=== PATIENT | male | born 1955 ===

== ENCOUNTER 2020-01-28 12:30 | Inpatient (IN) | payer MEDICARE, BC ==
[~2020-01-28] VITALS: Ht 175.3 cm; Wt 83.3 kg
[~2020-01-28 12:30] MED LIST: EC NAPROSYN500 MG PO; GLUCOPHAGE500 MG PO; GLUCOTROL10 MG PO; TRICOR200 MG PO
[2020-02-22] VITALS (11 sets, daily range): BP systolic 157–182; BP diastolic 66–89; PULSE 65–87; TEMP 97.5–98.4
--- NOTE | 2020-02-22 11:13 | NUR ---
TO RM 3 PER CART PER WC. ABLE TO TRANSFER TO BED WITH LITTLE ASSISTANCE. ALERT ORIENTED X3, VERBALIZED UNDERSTANDING AND SIGNED CONSENT.
[2020-02-22] MEDS ORDERED: LANTUS100 U/ML SQ (11:20)
[2020-02-22] MEDS ORDERED: GLUCOTROL10 MG PO (11:21)
[2020-02-22] MEDS ORDERED: NEURONTIN400 MG/CAP PO (11:22)
[2020-02-22] MEDS ORDERED: PROCARDIA XL90 MG PO (11:22)
[2020-02-22 11:23] LABS: BASO % 0.3 % (0.0-2.0); EOS # 0.1 (0.0-0.7); EOS % 1.9 % (0-4.0); GRAN % 67.5 % (42.2-75.2); HEMOGLOBIN 10.9 g/dl (13.5-18.0); LYMPH # 1.4 (1.2-3.4); LYMPH % 23.4 % (20.0-51.0); MEAN CELL VOLUME 94 fl (80.0-100.0); MEAN CORPUSCULAR HEMOGLOBIN 31 pg (27.0-31.0); MEAN CORPUSCULAR HGB CONC 33 g/dl (33.0-37.0); MEAN PLATELET VOLUME 10.6 fl (7.4-10.4); MONO # 0.4 (0.1-0.6); MONO % 6.7 % (1.7-9.3); PLATELET COUNT 267 K/mm3 (130-400); RED BLOOD COUNT 3.56 M/mm3 (4.20-5.60); REDCELL DISTRIBUTION WIDTH-CV 13.4 % (11.5-14.5)
[2020-02-22] MEDS ORDERED: TOPROL XL 25MG25 MG PO (11:23)
[2020-02-22 11:24] LABS: HEMATOCRIT 33.3 % (42.0-52.0)
[2020-02-22] MEDS ORDERED: PRINIVIL20 MG PO (11:24)
[2020-02-22] MEDS ORDERED: ISORDIL TITRADO30 MG PO (11:24)
[2020-02-22] MEDS ORDERED: K-DUR20 MEQ PO (11:26)
[2020-02-22] MEDS ORDERED: LIPOFEN50 M1 PO (11:26)
[2020-02-22] MEDS ORDERED: NORCO 325 MG-101 TAB PO (11:27)
[2020-02-22] MEDS ORDERED: ONE-A-DAY ESSE1 EACH PO (11:27)
[2020-02-22 11:35] LABS: ALBUMIN 3.5 gm/dL (3.5-5.0); BILIRUBIN,TOTAL 0.3 mg/dL (0.0-1.0); CALCIUM 8.2 mg/dL (8.4-10.2); POTASSIUM 4.4 mmol/L (3.4-5.0); TOTAL PROTEIN 6.3 gm/dL (6.4-8.2)
[2020-02-22] MEDS ORDERED: IMDUR 30MG30 MG/TAB PO (16:37)
--- NOTE | 2020-02-22 17:50 | NUR ---
Patient to room via bed from PACU. Patient wakes up to name and will respond but goes back to sleep. Abd lap sites x5 with all edges well approximated, glue in place, no redness/swelling/discharge noted. Larger incision to lower abd with edges well approximated, glue in place, no redness/swelling/discharge noted. Foss to dependent drainage draining clear yellow/green urine. Patient oriented to room.
--- NOTE | 2020-02-22 20:07 | NUR ---
Resting in bed. Assessment complete. Lungs clear. Heart sounds normal. Bowels hypoactive. Foss to dependent drainage. ABD soft. x5 lap sites with x1 transverse site. BP elevated given scheduled meds and will monitor. Reported 10/10 pain. Given tramadol. Fluids clarified. Changed to NS from LR. Started at this time. Denies other needs. Will monitor.
--- NOTE | 2020-02-22 20:52 | NUR ---
Ximena Sands called for an update. Per patient okay to speak with. Update given. All questions answered.
--- NOTE | 2020-02-22 21:47 | NUR ---
Patient BP in 170s after metoprolol. Per Dr. Farooq pain manage for now and call if above 190.
--- NOTE | 2020-02-22 21:54 | NUR ---
Rating pain 12/10, given PRN oxycodone at this time. Call light in reach.
--- NOTE | 2020-02-22 22:05 | NUR ---
Patient had large dark red/bloody Bm at this time. Will monitor.
--- NOTE | 2020-02-22 23:52 | NUR ---
Resting in bed asleep. No obvious discomfort at this time. BP 150s systolic. Will monitor. Call light in reach.
[2020-02-23] VITALS (9 sets, daily range): BP systolic 132–202; BP diastolic 63–92; PULSE 72–83; TEMP 97.5–98.8
--- NOTE | 2020-02-23 01:00 | NUR ---
Placed on bed fuchs. Gas only, no BM. Denies other needs. Call light in reach.
--- NOTE | 2020-02-23 02:05 | NUR ---
Resting in bed asleep. Call light in reach.
--- NOTE | 2020-02-23 04:00 | NUR ---
Reported toe pain from covers. Removed and pain resolved. Denies other needs. Call light in reach.
--- NOTE | 2020-02-23 04:12 | NUR ---
Rating pain 4/10 in ABD/Back. Given scheduled tylenol. Call light in reach.
--- NOTE | 2020-02-23 05:32 | NUR ---
Rating pain 6/10. Provided with PRN oxycodone. Denies other needs. Call light in reach.
--- NOTE | 2020-02-23 07:05 | NUR ---
Report given to TONIO Francisco
[2020-02-23 07:10] LABS: BASO % 0.2 % (0.0-2.0); EOS % 0.1 % (0-4.0); GRAN # 7.6 (1.4-6.5); GRAN % 79.4 % (42.2-75.2); HEMATOCRIT 30.9 % (42.0-52.0); HEMOGLOBIN 10.1 g/dl (13.5-18.0); LYMPH # 1.2 (1.2-3.4); MEAN CELL VOLUME 94 fl (80.0-100.0); MEAN CORPUSCULAR HEMOGLOBIN 31 pg (27.0-31.0); MEAN CORPUSCULAR HGB CONC 33 g/dl (33.0-37.0); MEAN PLATELET VOLUME 10.6 fl (7.4-10.4); MONO # 0.7 (0.1-0.6); PLATELET COUNT 255 K/mm3 (130-400); RED BLOOD COUNT 3.29 M/mm3 (4.20-5.60); REDCELL DISTRIBUTION WIDTH-CV 13.9 % (11.5-14.5)
--- NOTE | 2020-02-23 07:18 | NUR ---
Shift assessment completed. Patient has no abdominal complaints at this time. Patient is using SCD's, has an indwelling catheter and an INT IV line. No redness or swelling at the IV site. LAP Incision REX x5, no swelling at the incision site and glue is intact.
[2020-02-23 07:23] LABS: CALCIUM 7.4 mg/dL (8.4-10.2); CREATININE, serum 2.37 (0.66-1.25); MAGNESIUM 1.7 mg/dL (1.6-2.3); PHOSPHOROUS 4.2 mg/dL (2.5-4.5); POTASSIUM 4.8 mmol/L (3.4-5.0)
--- NOTE | 2020-02-23 08:38 | NUR ---
Lying in bed with eyes open. Alert and oriented x3. Rates pain in abd 2-3/10, unable to describe. Lap sites x5 with all edges well approximated, glue intact, no redness/swelling/discharge. Low abd incision with edges well approximated, glue intact, no redness/swelling/discharge. Minimal lower ext edema noted that resolves quickly. Will dc IV fluids at this time as the patient is tolerating PO without difficulty. Foss to dependent drainage draining clear yellow urine. Denies additional needs.
--- NOTE | 2020-02-23 09:30 | NUR ---
Patient ambulated to the bathroom and had a bowel movement. Small loose stool was dark red. Some minimal abdominal pain when sitting up and getting to the edge of the bed. No issues with ambulation.
--- NOTE | 2020-02-23 11:05 | NUR ---
Administer Roxicodone as prescribed for back pain 02/25. Patient says that he has chronic back pain and being in the bed does not help. Explain that we can sit him up in the recliner chair if being in the recliner is better. Patient says that will help. Will allow time for pain medication to work then assist patient up to recliner. Denies additional needs at this time.
--- NOTE | 2020-02-23 11:45 | NUR ---
BP elevated, apresoline administered as prescribed.
--- NOTE | 2020-02-23 11:55 | NUR ---
Patient continues to have pain in low back. Says that this is an ongoing issue that he has at home as well and he usually sits up in recliner and that helps decrease the pain. Assist patient up to recliner at this time. Patient says that it was instant relief from pain when he got in recliner. Pain rating went from 9/10 down to 6/10. Assisted patient in setting up lunch tray. Patient denies additional needs at this time.
--- NOTE | 2020-02-23 13:04 | NUR ---
Patient in recliner with eyes closed. Opens eyes when enter room. Says that his pain is better. BP checked manually and is 152/78. Assisted patient in reclining top of chair back to comfortable position. Patient denies additional needs at this time.
--- NOTE | 2020-02-23 14:44 | NUR ---
Patient sitting up in chair with eyes open. Starting to have increase of pain in back. Patient says that even at home the pain medication does not last the time that it should. Patient would like pain medication. Administer tramadol as prescribed. Patient would like to stay in chair at this time. Denies additional needs.
--- NOTE | 2020-02-23 16:01 | NUR ---
Enterprise Project Manager met with patient to discuss discharge planning. Patient lives alone in [place], [place] and sees Dr. Lay for primary care. Patient obtains medications from [facility] in [place] or [facility] in [place]. Patient reports he has four walkers, three wheelchairs, a walk in shower, and a raised toilet. Patient advised he is normally independent with ADLS but does walk slow. Patient does not have Advance Directives. Patient is not , does not have children, his parents are , and his one sister is . Patient reports he has a niece and newphew but does not want to designate them as DPOA-HC. Patient states if he were to designate anyone it would be his neighbor, Gene Coe (ph#[phone]), who will inherit all his belongins when patient passes. Patient would like to complete the DPOA-HC form while he is here. MAURICIO assisted him in completing the form then MAURICIO and MAURICIO Hassan provided witness signature. MAURICIO provided original and copies to patient then placed a copy in patient's chart. MAURICIO spoke with Dr. Rizzo and requested PT/OT for patient. MAURICIO will continue to follow.
--- NOTE | 2020-02-23 16:23 | NUR ---
Sitting up in chair talking on cell phone. Continues to have low back pain, does not feel that the Tramadol really helped. Patient is aware that he can have more pain medication at 1700. Denies additional needs at this time.
--- NOTE | 2020-02-23 17:03 | NUR ---
Patient remains sitting up in chair. Rates pain in abd 6/10 and pain in back 8/10. Requests Roxicodone at this time, administered as prescribed.
[2020-02-23 17:36] LABS: CALCIUM 7.7 mg/dL (8.4-10.2); CREATININE, serum 2.23 (0.66-1.25); POTASSIUM 4.4 mmol/L (3.4-5.0)
--- NOTE | 2020-02-23 17:59 | NUR ---
Sitting up in recliner, continues to rate pain in back and abd 6/10. Says that he hopes tomorrow to not have to get IV fluids any longer and to also get rid of the catheter. Patient denies additional concerns or needs at this time.
--- NOTE | 2020-02-23 18:53 | NUR ---
IV fluids dc'd per orders and site saline locked. Discussed with the patient the process to remove catheter, patient is ready to get this done. Catheter care provided at this time. 10mL removed from catheter balloon. Catheter pulled at this time, tubing all intact. Patient explains that he already has some relief getting the catheter out. Tolerates procedure well. Remains sitting up in chair at this time. Denies additional needs or concerns at this time.
--- NOTE | 2020-02-23 19:10 | NUR ---
Received report from Maryam. Seen patient awake, sitting in the recliner. He is alert and oriented. With INT on right forearm. With 5 lap sites in abdomen and incision on his low abdomen. Clean, dry and intact. No dressing. Call light within reach.
--- NOTE | 2020-02-23 20:45 | NUR ---
Patient complains of abdominal and back pain. Pain score of 7/10. Offered to him Tramadol but he said it doesn't work well for him and he prefers Oxycodone.
[2020-02-24 04:21] VITALS: BP 160/67; PULSE 70; TEMP 98.3
--- NOTE | 2020-02-24 06:34 | NUR ---
Patient had uneventful night. He occasionally complained of back pain and abdominal pain. Oxycodone and scheduled Tylenol was given. Call light within reach.
[2020-02-24 07:38] VITALS: BP 147/70; PULSE 75; TEMP 98
[2020-02-24 07:39] LABS: BASO % 0.1 % (0.0-2.0); EOS # 0.1 (0.0-0.7); EOS % 1.6 % (0-4.0); GRAN # 5.7 (1.4-6.5); GRAN % 75.7 % (42.2-75.2); LYMPH # 1.3 (1.2-3.4); LYMPH % 16.9 % (20.0-51.0); MEAN CELL VOLUME 94 fl (80.0-100.0); MEAN CORPUSCULAR HGB CONC 32 g/dl (33.0-37.0); MEAN PLATELET VOLUME 10.6 fl (7.4-10.4); MONO # 0.4 (0.1-0.6); MONO % 5.4 % (1.7-9.3); PLATELET COUNT 245 K/mm3 (130-400); REDCELL DISTRIBUTION WIDTH-CV 14.1 % (11.5-14.5)
[2020-02-24 07:42] LABS: ALBUMIN 2.9 gm/dL (3.5-5.0); BILIRUBIN,TOTAL 0.3 mg/dL (0.0-1.0); CALCIUM 7.7 mg/dL (8.4-10.2); CREATININE, serum 2.09 (0.66-1.25); POTASSIUM 4.1 mmol/L (3.4-5.0); TOTAL PROTEIN 5.5 gm/dL (6.4-8.2)
[2020-02-24 07:53] LABS: HEMATOCRIT 30.2 % (42.0-52.0); HEMOGLOBIN 9.7 g/dl (13.5-18.0); MEAN CORPUSCULAR HEMOGLOBIN 30 pg (27.0-31.0)
--- NOTE | 2020-02-24 08:25 | NUR ---
Sitting up in chair. Says that his pain is better today and when he gets the Tylenol he only wants to take one. Abd lap sites x5 with edges well approximated, no redness/swelling/discharge. Low abd incision with edges well approximated, no redness/swelling/discharge. Patient remains sitting up in recliner. Denies any additional needs or concerns at this time.
--- NOTE | 2020-02-24 09:02 | NUR ---
First visit from the game protector. No needs right now.
--- NOTE | 2020-02-24 11:33 | NUR ---
Sitting up in chair watching TV. Patient continues to have minimal pain at this time. BS elevated, patient says that he had orange juice at breakfast and he knew he shouldn't have drank it. Insulin administered as prescribed. Denies additional needs at this time.
[2020-02-24] MEDS ORDERED: ROXICODONE 55 MG/TAB PO (11:49)
[2020-02-24] MEDS ORDERED: ULTRAM 50MG TAB50 MG PO (11:50)
[2020-02-24] MEDS ORDERED: TYLENOL 500MG500 MG PO (11:50)
[2020-02-24 13:01] VITALS: BP 151/68; PULSE 77; TEMP 97.8
--- NOTE | 2020-02-24 14:26 | NUR ---
Having back pain, requests pain medication, does not want tramadol as it does not help. Will administer Roxicodone as prescribed. Patient was ambulating in halls with PT. Returns to room and sits up in chair.
[2020-02-24 16:00] VITALS: BP 133/65; PULSE 81; TEMP 97.9
--- NOTE | 2020-02-24 16:37 | NUR ---
Patient sitting up in chair, holding head in hand looking at ground. Asked patient what was going on and he says that he got a frustrating phone call that some of his crop was ruined.Support provided to the patient. Pain has decreased some in back, always has chronic back pain. Dr. Espinal in room to talk with patient regarding his diabetes. Voices no further needs at this time.
--- NOTE | 2020-02-24 19:20 | NUR ---
Received change of shift report from day shift nurse.
--- NOTE | 2020-02-24 20:00 | NUR ---
PATIENT DENIES CHEST PAIN/SHORTNESS OF BREATH AT THIS TIME. TELE IN PLACE, WITH SALINE LOCK SITE CLEAR. SEE eMAR FOR MEDS GIVEN. UP IN ROOM WITH ASST NEEDED.
[2020-02-24 20:39] VITALS: BP 153/68; PULSE 77; TEMP 98.5
[2020-02-25 00:35] VITALS: BP 133/44; PULSE 74; TEMP 98.3
[2020-02-25 04:18] VITALS: BP 143/70; PULSE 69; TEMP 97.7
--- NOTE | 2020-02-25 04:22 | NUR ---
PATIENT UP IN CHAIR, SEE eMAR FOR PAIN MEDS GIVEN. NO OTHER NEEDS REPORTED.
--- NOTE | 2020-02-25 07:14 | NUR ---
CHANGE OF SHIFT REPORT GIVEN TO DAY SHIFT NURSEYT. PATIENT UP TO BATHROOM, AMBULATING WITH NO PROBLEM.
[2020-02-25 07:37] LABS: MEAN CELL VOLUME 93 fl (80.0-100.0); MEAN CORPUSCULAR HGB CONC 33 g/dl (33.0-37.0); MEAN PLATELET VOLUME 10.8 fl (7.4-10.4); PLATELET COUNT 194 K/mm3 (130-400); RED BLOOD COUNT 3.15 M/mm3 (4.20-5.60); REDCELL DISTRIBUTION WIDTH-CV 13.6 % (11.5-14.5)
[2020-02-25 07:48] LABS: CALCIUM 7.7 mg/dL (8.4-10.2); CREATININE, serum 1.82 (0.66-1.25); POTASSIUM 4.3 mmol/L (3.4-5.0)
[2020-02-25 07:59] LABS: HEMATOCRIT 29.4 % (42.0-52.0); HEMOGLOBIN 9.8 g/dl (13.5-18.0); MEAN CORPUSCULAR HEMOGLOBIN 31 pg (27.0-31.0)
[2020-02-25 08:37] LABS: BAND 1 % (0-10); EOSINOPHIL 3 % (0-4); LYMPHOCYTE 30 % (20.0-51.0); NEUTROPHILS 66 % (42.0-75.2); PLATELET ESTIMATE NORMAL (NORMAL)
[2020-02-25 08:38] VITALS: BP 144/67; PULSE 70; TEMP 98.3
--- NOTE | 2020-02-25 10:45 | NUR ---
Patient is discharging home. Discharge instructions discussed with patient. No questions verbalized. INT discontinued. Explained when his follow up appointment is. Patient has prescriptions to take to the pharmacy, patient is aware. Patient packed up his belongings. Wallet returned to patient from the safe. He counted the money and it was all there. Copies of discharge instructions sent with patient. Patient walked out via wheel chair by Dilcia COX.
== END 2020-02-25 10:50 | disposition home or self-care (01) | DRG 330 ==
LOC: INPTSU 02-22 09:46 → SURG 02-22 12:00
PROVIDERS: Hospitalist; Nurse Anesthetist, Certified Registered; Urology; ADMIT Surgery
PROC: 8E0W4CZ Robotic Assisted Procedure of Trunk Region, Percutaneous Endoscopic Approach (ICD-10-PCS; 2020-02-22)
PROC: 0DTF4ZZ Resection of Right Large Intestine, Percutaneous Endoscopic Approach (ICD-10-PCS; principal; 2020-02-22 12:00)
PROC: 0DNW4ZZ Release Peritoneum, Percutaneous Endoscopic Approach (ICD-10-PCS; 2020-02-22 12:00)
DX: D12.2 Benign neoplasm of ascending colon (principal); N18.4 Chronic kidney disease, stage 4 (severe); I12.9 Hypertensive chronic kidney disease with stage 1 through stage 4 chronic kidney disease, or unspecified chronic kidney disease; E11.22 Type 2 diabetes mellitus with diabetic chronic kidney disease; D64.9 Anemia, unspecified; E11.649 Type 2 diabetes mellitus with hypoglycemia without coma; E78.1 Pure hyperglyceridemia; Z79.4 Long term (current) use of insulin
CPT/HCPCS: 99223; A4314; J0360; J1100; J1650; J1815; J1940; J2250; J2405; J2704; J3010; J7030; J7120